=== PATIENT | male | born 1995 | race Caucasian/White ===

== ENCOUNTER 2023-06-03 18:42 | Emergency (ER) | payer MEDICAID, SELFPAY ==
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
[2023-06-03 18:51] VITALS: BP 109/80; PULSE 98; RESP 16; TEMP 36.8; O2SAT 99; BMI 19.8
[2023-06-03 19:19] VITALS: RESP 16; O2SAT 99
[2023-06-03] MEDS: morphine 4 mg/mL SDV 1 mL IM (19:19)
--- NOTE | 2023-06-03 20:30 | PC.NURSE ---
Wound VAC to left abd removed per MD. Wounds irrigated well with 500ml NS. Wet to dry dressing applied to both wounds. New colostomy bag applied. Pt tolerated well.
[2023-06-03 21:51] VITALS: BP 112/89; PULSE 95; O2SAT 100
--- NOTE | 2023-06-04 08:10 | DCPLANNER ---
Addendum entered by Agatha Cha 06/06/23 09:21: hotel recreational facilities manager received the following message from the Wound Care clinic regarding follow up appointment: Dr. Tsai, our Forging Roll Operator, looked at this referral and believes that the patient requires more care with the ostomy than we can provide here. I sent the referral on to [facility] in [place]. Original Note: hotel recreational facilities manager had message to schedule a follow up appointment for patient with Wound Care. hotel recreational facilities manager sent patients information to the front office staff at wound care. Patients information will be printed and reviewed. Clinic will call patient with appointment information.
--- NOTE | 2023-06-04 10:11 | DCPLANNER ---
manager of information called patient due to no primary care physician - no answer at this time.
== END 2023-06-03 21:53 | disposition home or self-care (01) ==
PROVIDERS: Emergency Provider Emergency Medicine
DX: R10.9 Unspecified abdominal pain (principal); T85.9XXA Unspecified complication of internal prosthetic device, implant and graft, initial encounter; Y82.8 Other medical devices associated with adverse incidents; N99.528 Other complication of incontinent external stoma of urinary tract; Y83.8 Other surgical procedures as the cause of abnormal reaction of the patient, or of later complication, without mention of misadventure at the time of the procedure
CPT/HCPCS: 96372; 99284; J2270

== ENCOUNTER 2023-10-11 09:06 | Inpatient (IN) | payer OTHER, MEDICAID, SELFPAY ==
[2023-10-11 09:44] VITALS: BMI 27.7
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
[2023-10-11 14:00] VITALS: BP 135/78; PULSE 96; RESP 16; TEMP 36.9; O2SAT 98
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
[2023-10-11 20:18] VITALS: BP 121/79; PULSE 85; RESP 16; TEMP 37.2; O2SAT 98
[2023-10-11] MEDS: trazodone 50 mg Tablet PO (20:43)
[2023-10-12 06:00] VITALS: BP 132/83; PULSE 79; RESP 16; TEMP 36.8; O2SAT 95; BMI 27.1
[2023-10-12] MEDS: atomoxetine 40 mg Capsule PO (08:37)
[2023-10-12] MEDS: buPROPion XL (24 HR) 300 mg Tablet 150 MG PO (08:38)
--- NOTE | 2023-10-12 08:49 | W.PM.NPUPNS ---
Subjective NPU Subjective: Patient presented today reporting that he is adjusting to being his medications restarted. There is that otherwise there are no new problems. We discussed the social work team returning tomorrow and with him for discharge logistics on sober living programs. He denied any Side effects to the new/restarted medication. Mental Status Exam MSE Comments: This is a well-nourished, well-developed, white male, in hospital scrubs, with limited grooming and eye contact. Significant tattooing on exposed skin. No abnormal movements, except for psychomotor retardation. Cooperative with exam in mild distress. Speech was normal rate and volume. Mood described as okay; affect congruent. Thought process, organized. Thought content: patient denied any suicidal or homicidal ideation, there were no delusions reported or noted, patient denied any auditory or visual hallucinations. Attention, concentration, and memory appeared intact, but none were formally tested. Alert and oriented times three. Insight and judgment appear fair. Impulse control is limited. Vitals/I&O/Wt Last Vital Signs Temp 98.3 F 10/12/23 06:00 Pulse 79 10/12/23 06:00 Resp 16 10/12/23 06:00 BP 132/83 10/12/23 06:00 Pulse Ox 95 10/12/23 06:00 O2 Del Method Room Air 10/12/23 06:00 Weight last 48 hrs Weight 93.497 kg Weight 95.254 kg Weight 95.254 kg A&P Assessment and plan (1) Methamphetamine use disorder, severe, in sustained remission: (2) Major depressive disorder, recurrent: (3) Anxiety disorder: Plan This is a 28-year-old, white male, with genetic loading for mental health and addiction issues, with a history of mental health and addiction issues going back to childhood, who presented to an outside hospital reporting suicidal thoughts, and presents now with a willingness to restart and adjust his medications and expressing a desire to get into another sober living facility. 1.? Restarted Wellbutrin XL at 150 mg. 2.? Restarted Strattera 40 mg. 3.?Restartws Lyrica 4.? Check what Trazodone dose he was on. 5.? Encourage individual, group, and milieu therapy. 6.? Continue q-15-minute checks for safety. 7.? Recommend sober living treatment at the highest level of care to which the patient is willing to commit. Involuntary Hold Information 96 Hour Hold: 96 Hour Involuntary Admission: No Attestations NPU Medical Necessity Statement*: Inpatient hospitalization is medically necessary and the clinically appropriate intervention, at this time. We will monitor medications and make changes as indicated. Likely length of stay is 1-3 days. Coding Level of Care Code Acute Code for [facility] Fwd Diagnoses Methamphetamine use disorder, severe, in sustained remission F15.21 Major depressive disorder, recurrent F33.9 Anxiety disorder F41.9
[2023-10-12 14:00] VITALS: BP 107/71; PULSE 89; RESP 16; TEMP 36.9; O2SAT 99
[2023-10-12 20:46] VITALS: BP 112/71; PULSE 80; RESP 16; TEMP 36.8; O2SAT 97
[2023-10-13 06:00] VITALS: BP 139/89; PULSE 79; RESP 15; O2SAT 98
[2023-10-13] MEDS: atomoxetine 40 mg Capsule PO (08:10)
[2023-10-13] MEDS: buPROPion XL (24 HR) 300 mg Tablet 150 MG PO (08:11)
[2023-10-13] MEDS: nicotine 4 mg lozenge MUCOUS MEM (12:01)
[2023-10-13 14:00] VITALS: BP 115/58; PULSE 60; RESP 14; TEMP 36.5; O2SAT 97
--- NOTE | 2023-10-13 17:06 | P.NPUPN_ITS ---
Subjective NPU Subjective: Patient presented today reporting that he is feeling a little better. He reports some optimism about his situation. He did get [facility]ed at [facility] and we discussed the plan for discharge in the morning. He endorsed that he is doing fine with the medication and denied any side effects. He reported just being a little anxious about when he will be released exactly and how he would be getting there. We discussed that the social work team would be arranging that with this appeals writer in the morning. Mental Status Exam MSE Comments: This is a well-nourished, well-developed, white male, in hospital scrubs, with limited grooming and eye contact. Significant tattooing on exposed skin. No abnormal movements, except for psychomotor retardation. Cooperative with exam in mild distress. Speech was normal rate and volume. Mood described as a little better; affect congruent. Thought process, organized. Thought content: patient denied any suicidal or homicidal ideation, there were no delusions reported or noted, patient denied any auditory or visual hallucinations. Attention, concentration, and memory appeared intact, but none were formally tested. Alert and oriented times three. Insight and judgment appear fair. Impulse control is limited. Vitals/I&O/Wt Last Vital Signs Temp 98.0 F 10/13/23 19:46 Pulse 71 10/13/23 19:46 Resp 18 10/13/23 19:46 BP 120/72 10/13/23 19:46 Pulse Ox 98 10/13/23 19:46 O2 Del Method Room Air 10/13/23 06:00 A&P Assessment and plan (1) Methamphetamine use disorder, severe, in sustained remission: (2) Major depressive disorder, recurrent: (3) Anxiety disorder: Plan This is a 28-year-old, white male, with genetic loading for mental health and addiction issues, with a history of mental health and addiction issues going back to childhood, who presented to an outside hospital reporting suicidal thoughts, and presents now with a willingness to restart and adjust his medications and expressing a desire to get into another sober living facility. 1.? Restarted Wellbutrin XL at 150 mg. 2.? Restarted Strattera 40 mg. 3.?Restartws Lyrica 4.? Check what Trazodone dose he was on. 5.? Encourage individual, group, and milieu therapy. 6.? Continue q-15-minute checks for safety. 7.? Recommend sober living treatment at the highest level of care to which the patient is willing to commit. Patient excepted at [facility] with tentative plan for discharge in the morning. Involuntary Hold Information 96 Hour Hold: 96 Hour Involuntary Admission: No Attestations NPU Medical Necessity Statement*: Inpatient hospitalization is medically necessary and the clinically appropriate intervention, at this time. We will monitor medications and make changes as indicated. Likely length of stay is 1-3 days. Coding Level of Care Code Acute Code for g Fwd Diagnoses Methamphetamine use disorder, severe, in sustained remission F15.21 Major depressive disorder, recurrent F33.9 Anxiety disorder F41.9
[2023-10-13] MEDS: nicotine 2 mg Gum BUCCAL (18:54)
[2023-10-13 19:46] VITALS: BP 120/72; PULSE 71; RESP 18; TEMP 36.7; O2SAT 98
[2023-10-13] MEDS: trazodone 50 mg Tablet PO (19:53)
[2023-10-14] MEDS: nicotine 2 mg Gum BUCCAL ×2 (05:53→10:40)
[2023-10-14 06:00] VITALS: BP 137/80; PULSE 80; RESP 18; TEMP 36.6; O2SAT 97
[2023-10-14] MEDS: atomoxetine 40 mg Capsule PO (08:08)
[2023-10-14] MEDS: buPROPion XL (24 HR) 300 mg Tablet 150 MG PO (08:09)
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
[2023-10-14 11:54] VITALS: BP 137/80; PULSE 80; RESP 18; TEMP 36.6; O2SAT 97
== END 2023-10-14 15:21 | disposition home or self-care (01) | DRG 885 ==
PROVIDERS: Admitting Provider Psychiatry & Neurology Psychiatry; Visit Provider Psychiatry & Neurology Psychiatry
DX: F33.9 Major depressive disorder, recurrent, unspecified (principal); R45.851 Suicidal ideations; Z59.00 Homelessness unspecified; F15.21 Other stimulant dependence, in remission; Z91.128 Patient's intentional underdosing of medication regimen for other reason; Z81.8 Family history of other mental and behavioral disorders; Z81.4 Family history of other substance abuse and dependence; F17.210 Nicotine dependence, cigarettes, uncomplicated; Z62.812 Personal history of neglect in childhood; Z62.810 Personal history of physical and sexual abuse in childhood; Z62.811 Personal history of psychological abuse in childhood; Z93.3 Colostomy status
CPT/HCPCS: 97150; 97165